=== PATIENT | male | born 1995 | race Caucasian/White ===

== ENCOUNTER 2021-01-23 07:05 | Emergency (ER) | payer MEDICAID ==
[~2021-01-23] VITALS: Ht 185.4 cm; Wt 83.9 kg
--- NOTE | 2021-01-23 07:22 | NUR ---
Dr Medeiros at the bedside for MSE.
[2021-01-23] MEDS ORDERED: IOHEXOL 300MG/ML 100 ML INFUS..BTL ONE (07:27)
[2021-01-23] MEDS ORDERED: IV NORMAL SALINE 250 ML IV ONE (07:27)
[2021-01-23] MEDS ORDERED: SWABABLE VALVE TRANSFER SET EA MC ONE (07:27)
[2021-01-23] MEDS ORDERED: MORPHINE SULFATE 2 MG/1 ML DISP.SYRIN IV ONE (07:30)
[2021-01-23] MEDS ORDERED: ONDANSETRON 4 MG/2 ML VIAL IV ONE ×2 (07:30→09:00)
[2021-01-23] MEDS ORDERED: IV NORMAL SALINE 1000 ML BAG IV ONE ×2 (07:30→08:00)
[2021-01-23 07:35] LABS: BASOPHILS # (AUTO) 0.1 K/uL (0.0-8.0); BASOPHILS % (AUTO) 0.6 % (0.0-2.0); EOSINOPHILS # (AUTO) 0.1 K/uL (0.0-0.7); EOSINOPHILS % (AUTO) 0.4 % (0.0-7.0); HEMATOCRIT 45.3 % (36.7-47.1); HEMOGLOBIN 15.2 g/dL (12.5-16.3); LYMPHOCYTES % (AUTO) 15.1 % (20.5-51.5); MEAN CORPUSCULAR HEMOGLOBIN 31.4 uug (23.8-33.4); MEAN CORPUSCULAR HGB CONC 34 g/dL (32.5-36.3); MEAN CORPUSCULAR VOLUME 93.3 fL (73.0-96.2); MONOCYTES # (AUTO) 0.6 K/uL (2.0-10.0); MONOCYTES % (AUTO) 4.6 % (0.0-11.0); NEUTROPHILS # (AUTO) 10.6 K/uL (1.8-8.9); NEUTROPHILS % (AUTO) 79.3 % (38.5-71.5); PLATELET COUNT (AUTO) 265 K/uL (152-348); RED BLOOD CELL COUNT(AUTO) 4.86 MIL/uL (4.06-5.63); WHITE BLOOD COUNT (AUTO) 13.3 K/uL (3.6-10.2)
[2021-01-23] MEDS ORDERED: ONDANSETRON 4 MG/2 ML VIAL ONE ×2 (07:38→08:44)
[2021-01-23] MEDS ORDERED: MORPHINE SULFATE 4 MG/1 ML DISP.SYRIN ONE (07:38)
[2021-01-23 07:43] LABS: CREATININE 1.1 mg/dL (0.6-1.3); POTASSIUM 3.3 mmol/L (3.5-5.1)
--- NOTE | 2021-01-23 07:49 | NUR ---
Pt singed consent for IV contrasted CT, placed in the chart.
[2021-01-23 07:50] LABS: BILIRUBIN,DIRECT 0.2 mg/dL (0.0-0.2); BILIRUBIN,TOTAL 0.9 mg/dL (0.2-1.0); TOTAL PROTEIN, SERUM 8.2 g/dL (6.4-8.2)
--- NOTE | 2021-01-23 08:12 | NUR ---
Pt is back from CT, resting in bed.
[2021-01-23] MEDS ORDERED: KETOROLAC TROMETHAMINE 15 MG INJ ONE (08:46)
[2021-01-23] MEDS ORDERED: KETOROLAC TROMETHAMINE 15 MG INJ IVP ONE (09:00)
[2021-01-23 10:36] VITALS: BP 120/60
--- NOTE | 2021-01-23 10:48 | NUR ---
IV removed. Catheter intact and site benign. Pressure and 4x4 gauze applied to site. No bleeding noted.
--- NOTE | 2021-01-23 10:48 | NUR ---
Patient discharged to home in stable condition. Written and verbal after care instructions given. Patient verbalizes understanding of instructions. Stressed follow up or return to ER for worsening s/s.
== END 2021-01-23 10:48 | disposition home or self-care (01) ==
LOC: ER 07:05
DX: R11.2 Nausea with vomiting, unspecified (principal); E87.2 Acidosis; R10.84 Generalized abdominal pain; Z91.010 Allergy to peanuts; Z91.018 Allergy to other foods; R03.0 Elevated blood-pressure reading, without diagnosis of hypertension
CPT/HCPCS: 74177; 80048; 80076; 83605 ×2; 83690; 85025; 93005; 96361; 96374; 96375; 96376; 99285; J1885; J2270; J2405 ×2; Q9967; 36415; A4663; J7030; J7040; J7050